=== PATIENT | female | born 1995 | race Caucasian/White ===

== ENCOUNTER 2018-12-26 17:33 | Emergency (ER) | payer OTHER ==
[~2018-12-26] VITALS: Ht 152.4 cm; Wt 56.7 kg
== END 2018-12-26 21:20 | disposition home or self-care (01) ==
LOC: ER 17:33
DX: B34.9 Viral infection, unspecified (principal); N39.0 Urinary tract infection, site not specified

== ENCOUNTER 2019-01-25 10:06 | Outpatient (CLI) | payer OTHER | END 2019-01-25 10:11 | disposition home or self-care (01) | LOC: LAB 10:06 | DX: N39.0 Urinary tract infection, site not specified (principal); R42 Dizziness and giddiness; E78.49 Other hyperlipidemia ==

== ENCOUNTER 2019-02-22 09:36 | Outpatient (CLI) | payer OTHER | END 2019-02-22 14:55 | disposition home or self-care (01) | LOC: LAB 09:36 | DX: D50.8 Other iron deficiency anemias (principal); D57.1 Sickle-cell disease without crisis; D64.89 Other specified anemias; D55.0 Anemia due to glucose-6-phosphate dehydrogenase [G6PD] deficiency; D68.8 Other specified coagulation defects ==

== ENCOUNTER 2019-04-22 09:04 | Outpatient (CLI) | payer OTHER | END 2019-04-22 09:14 | disposition home or self-care (01) | LOC: LAB 09:04 | DX: D50.8 Other iron deficiency anemias (principal) ==

== ENCOUNTER 2024-06-29 11:36 | Outpatient (CLI) | payer OTHER | END 2024-06-29 11:39 | disposition home or self-care (01) | LOC: PRENATAL 11:36 | PROVIDERS: ATTEND Obstetrics & Gynecology Maternal & Fetal Medicine | DX: O36.80X0 Pregnancy with inconclusive fetal viability, not applicable or unspecified (principal); Z36.82 Encounter for antenatal screening for nuchal translucency; Z36.9 Encounter for antenatal screening, unspecified; Z3A.12 12 weeks gestation of pregnancy ==

== ENCOUNTER 2024-08-24 08:43 | Outpatient (CLI) | payer OTHER | END 2024-08-24 08:44 | disposition home or self-care (01) | LOC: PRENATAL 08:43 | PROVIDERS: ATTEND Obstetrics & Gynecology Maternal & Fetal Medicine | DX: O35.3XX0 Maternal care for (suspected) damage to fetus from viral disease in mother, not applicable or unspecified (principal); O44.00 Complete placenta previa NOS or without hemorrhage, unspecified trimester; Z3A.20 20 weeks gestation of pregnancy ==

== ENCOUNTER 2024-10-14 11:46 | Emergency (ER) | payer OTHER ==
[~2024-10-14] VITALS: Ht 152.4 cm; Wt 77.1 kg
[2024-10-14 13:33] LABS: HEMATOCRIT 33.7 % (36.0-45.00); HEMOGLOBIN 11.2 g/dL (12.0-15.00); MEAN CELL VOLUME 83.5 fL (80.00-100.00); MEAN CORPUSCULAR HEMOGLOBIN 27.8 pg (27.00-32.0); MEAN CORPUSCULAR HGB CONC 33.2 g/dl (32.0-36.0); PLATELET COUNT 251 K/uL (150-450); RED BLOOD COUNT 4.04 M/uL (4.00-6.00); RED CELL DISTRIBUTION WIDTH 14.6 % (11.5-14.5)
[2024-10-14 13:47] LABS: CALCIUM 8.5 mg/dL (8.5-10.1); CREATININE SERUM 0.52 mg/dL (0.55-1.02); GFR 141.45; POTASSIUM 3.52 mEq/L (3.5-5.1)
== END 2024-10-14 14:49 | disposition home or self-care (01) ==
LOC: ER 11:46
PROVIDERS: Emergency Medicine
DX: O26.892 Other specified pregnancy related conditions, second trimester (principal); Z3A.26 26 weeks gestation of pregnancy; R42 Dizziness and giddiness; Z91.013 Allergy to seafood

== ENCOUNTER → 2024-11-15 08:34 | Outpatient (CLI) | payer OTHER | END | disposition home or self-care (01) | LOC: PRENATAL 08:34 | PROVIDERS: ATTEND Obstetrics & Gynecology Maternal & Fetal Medicine | DX: O26.849 Uterine size-date discrepancy, unspecified trimester (principal); O36.8199 Decreased fetal movements, unspecified trimester, other fetus; Z3A.32 32 weeks gestation of pregnancy ==

== ENCOUNTER 2025-01-04 05:29 | Inpatient (IN) | payer OTHER ==
[~2025-01-04] VITALS: Ht 152.4 cm; Wt 3.6 kg
[2025-01-04] MEDS ORDERED: RINGERS SOLUTION,LACTATED 1,000 ML IV SCH (05:45)
[2025-01-04 05:59] VITALS: BP 124/83
[2025-01-04] MEDS ORDERED: PRENATABS RX T1 EACH PO (06:19)
[2025-01-04 06:41] LABS: HEMATOCRIT 34.9 % (36.0-45.00); HEMOGLOBIN 11.7 g/dL (12.0-15.00); MEAN CELL VOLUME 79.6 fL (80.00-100.00); MEAN CORPUSCULAR HEMOGLOBIN 26.8 pg (27.00-32.0); MEAN CORPUSCULAR HGB CONC 33.6 g/dl (32.0-36.0); PLATELET COUNT 227 K/uL (150-450); RED BLOOD COUNT 4.39 M/uL (4.00-6.00); RED CELL DISTRIBUTION WIDTH 16.4 % (11.5-14.5)
[2025-01-04 07:05] LABS: INR 0.99; PARTIAL THROMBOPLASTIN TIME 27.3 SECONDS (22.0-34.0); PROTHROMBIN TIME 10.8 SECONDS (9.0-11.5)
[2025-01-04 07:08] LABS: PH,URINE 6.5 (5.0-8.0); URINE APPEARANCE Cloudy; URINE BILIRRUBIN Negative (NEGATIVE); URINE BLOOD Negative; URINE COLOR Yellow; URINE GLUCOSE Negative (NEGATIVE); URINE KETONE 15 (NEGATIVE); URINE LEUKOCYTE Small; URINE NITRATE Negative; URINE PROTEIN Negative (NEGATIVE); URINE UROBILINOGEN 0.2 E.U./dl
[2025-01-04 07:10] LABS: URINE EPITHELIAL CELLS 50.4 uL (0.0-38.8); URINE WBC 82.1 uL (0.0-23.2)
[2025-01-04 07:13] VITALS: BP 108/71
[2025-01-04 07:13] LABS: ALBUMIN 2.6 gm/dL (3.4-5.0); BILIRUBIN TOTAL 0.38 mg/dL (0.3-1.2); CALCIUM 8.9 mg/dL (8.5-10.1); CREATININE SERUM 0.5 mg/dL (0.55-1.02); GFR 146.91; GLOBULINA 4.2 G/DL (2.4-3.5); POTASSIUM 3.72 mEq/L (3.5-5.1); TOTAL PROTEIN 6.8 gm/dL (6.4-8.2)
[2025-01-04 07:54] LABS: URINE CAST 0.58 uL (0.0-1.40)
[2025-01-04] MEDS ORDERED: OXYTOCIN 10 UNITS/ML VIAL ONE (10:48)
[2025-01-04] MEDS ORDERED: ERYTHROMYCIN BASE OPHT 1GM EACH TUBE OP ONE (10:49)
[2025-01-04 11:05] VITALS: BP 103/64; O2SAT 98
[2025-01-04] MEDS ORDERED: MEPERIDINE HCL/PF 50 MG/ML VIAL IM PRN (12:45)
[2025-01-04] MEDS ORDERED: PROMETHAZINE HCL 50 MG/ML AMPUL IM PRN (12:45)
[2025-01-04] MEDS ORDERED: MORPHINE SULFATE 4 MG/ML VIAL IV ONE (15:20)
[2025-01-04] MEDS ORDERED: MORPHINE SULFATE 4 MG/ML CARTRIDGE IV PRN (15:45)
[2025-01-04 16:15] VITALS: BP 120/76
[2025-01-04 17:19] LABS: HEMATOCRIT 35.4 % (36.0-45.00); HEMOGLOBIN 11.3 g/dL (12.0-15.00); MEAN CELL VOLUME 80.6 fL (80.00-100.00); MEAN CORPUSCULAR HEMOGLOBIN 25.7 pg (27.00-32.0); MEAN CORPUSCULAR HGB CONC 31.8 g/dl (32.0-36.0); PLATELET COUNT 222 K/uL (150-450); RED BLOOD COUNT 4.39 M/uL (4.00-6.00); RED CELL DISTRIBUTION WIDTH 16.3 % (11.5-14.5)
[2025-01-04 20:00] VITALS: BP 116/75
[2025-01-05 00:35] VITALS: BP 112/65
[2025-01-05 08:00] VITALS: BP 110/73
[2025-01-05] MEDS ORDERED: OxyCODONE HCL/APAP UD (PERCOCET) PO PRN (08:00)
[2025-01-05] MEDS ORDERED: PNV,CALCIUM 72/IRON/FOLIC ACID 1 TAB TABLET PO SCH (09:00)
[2025-01-05] MEDS ORDERED: DOCUSATE SODIUM 100MG CAP PO SCH (09:00)
[2025-01-05] MEDS ORDERED: SIMETHICONE 125 MG CAPSULE PO SCH (09:00)
[2025-01-05 16:01] VITALS: BP 108/75
[2025-01-06 00:02] VITALS: BP 90/55
[2025-01-06 08:00] VITALS: BP 98/61
[2025-01-06 15:00] VITALS: BP 108/62
[2025-01-07 01:49] VITALS: BP 110/68
[2025-01-07 08:01] VITALS: BP 102/66
== END 2025-01-07 16:35 | disposition home or self-care (01) | DRG 788 ==
LOC: O/R 05:29 → LDR 05:29 → O/R 12:44 → LDR 13:15 → OB/GYN 13:45
PROVIDERS: ADMIT Obstetrics & Gynecology; ATTEND Obstetrics & Gynecology
PROC: 4A1HXCZ Monitoring of Products of Conception, Cardiac Rate, External Approach (ICD-10-PCS; 2025-01-04)
PROC: 10D00Z1 Extraction of Products of Conception, Low, Open Approach (ICD-10-PCS; principal; 2025-01-04 12:30)
DX: O82 Encounter for cesarean delivery without indication (principal); Z3A.39 39 weeks gestation of pregnancy; Z37.0 Single live birth